=== PATIENT | female | born 1975 | race African-American/Black ===

== ENCOUNTER → 2019-09-23 | Outpatient (CLI) | payer BC ==
--- NOTE | 2019-09-23 11:02 | RAD ---
AP and Lateral Views of the Chest 09/23/2019 12:00 AM Indication: Productive cough x2 days. Comparison: Chest radiograph August 14, 2010 Findings: There is no focal consolidation or infiltrate identified. The cardiomediastinal silhouette is within normal limits. There is no evidence of pneumothorax or pleural effusion. No acute osseous abnormalities are identified. Impression: No evidence of acute cardiopulmonary process. Electronically signed by: Glynn Gilliam MD (09/23/2019 10:59 AM) [id number]
== END ==
LOC: DXRAD 09:31
PROVIDERS: ATTEND Family Medicine
DX: R05 Cough (principal)
CPT/HCPCS: 71046

== ENCOUNTER 2021-05-20 02:16 | Emergency (ER) | payer BC ==
[~2021-05-20] VITALS: Ht 160 cm; Wt 69.4 kg
--- NOTE | 2021-05-20 02:35 | PHYS DOC ---
Adult General HPI HPI Patient is a 45-year-old female who presents with right hand pain after getting it caught in the railing yesterday and twisting it. States that she has pain in the hand, 7 out of 10, dull and achy in nature. Denies any other injuries. States she took some naproxen earlier in the day which did help some but had not taken any other medicines. States she had not use an ice pack either. Review of Systems Review of Systems Review of systems otherwise unremarkable except noted in HPI Physical Exam Physical Exam Constitutional: Well developed, well nourished, no acute distress, non-toxic appearance. [] Skin: Warm, dry, no erythema, no rash. [] Back: No tenderness, no CVA tenderness. [] Extremities: Tenderness about the third and fourth digits of the right hand with some circumferential swelling around the DIP, neurovascular exam intact Neurologic: Alert and oriented X 3, normal motor function, normal sensory function, no focal deficits noted. [] Psychologic: Affect normal, judgement normal, mood normal. [] EKG EKG [] Radiology/Procedures Radiology/Procedures Imaging with dislocations at the third PIP and fourth PIP [] Given 3 mils of lidocaine as a digital block Reduced successfully Nakul taped Heart Score C/O Chest Pain: No Risk Factors: Risk Factors: DM, Current or recent (<one month) smoker, HTN, HLP, family history of CAD, obesity. Risk Scores: Risk Factors: DM, Current or recent (<one month) smoker, HTN, HLP, family history of CAD, obesity. Course & Med Decision Making Course & Med Decision Making Patient is a 45-year-old female who presents with a chief complaint of pain in the third and fourth digits of the right hand after twisting it and really Vital signs not concerning. Physical exam noted above. Given pain medicine and ice pack. [] Dragon Disclaimer Dragon Disclaimer This electronic medical record was generated, in whole or in part, using a voice recognition dictation system. Departure Departure: Impression: Primary Impression: Finger dislocation Disposition: 01 HOME / SELF CARE / HOMELESS Condition: GOOD Referrals: ALONDRA SANTIZO MD (PCP) Patient Instructions: Finger Dislocation Additional Instructions: Thank you for coming into the emergency department today and allowing us to take care of you. Please read the attached information carefully to go back over some of the things we discussed. Please use Tylenol, ibuprofen and ice as needed. CHRISTY MALHOTRA MD May 20, 2021 02:35
[2021-05-20] MEDS ORDERED: oxyCODONE/APAP 5/325 1 TAB TABLET PO ONE (02:45)
--- NOTE | 2021-05-20 03:20 | RAD ---
XR HAND_RIGHT 3 VIEWS 05/20/2021 2:59 AM INDICATION: Third and fourth finger pain. COMPARISON: None available. TECHNIQUE: 3 views of the right hand are provided. FINDINGS/ IMPRESSION: 1. There is no acute fracture or dislocation. 2. There is dislocation of the proximal interphalangeal joints of the third and fourth digits. There is adjacent soft tissue swelling. 3. Bone mineralization is within normal limits. There is no soft tissue gas or osseous erosion. No ra diopaque foreign body. Electronically signed by: Lisa Youngblood MD (05/20/2021 3:17 AM) MIRIAM
[2021-05-20 03:38] VITALS: BP 118/66
== END 2021-05-20 03:42 | disposition home or self-care (01) ==
LOC: ER 02:16
DX: S63.282A Dislocation of proximal interphalangeal joint of right middle finger, initial encounter (principal); S63.284A Dislocation of proximal interphalangeal joint of right ring finger, initial encounter; X50.9XXA Other and unspecified overexertion or strenuous movements or postures, initial encounter; Y93.89 Activity, other specified; Y92.89 Other specified places as the place of occurrence of the external cause; Y99.8 Other external cause status
CPT/HCPCS: 26770; 73130; 99284